=== PATIENT | male | born 1965 | race Caucasian/White ===

== ENCOUNTER 2018-08-03 05:25 | Day surgery (SDC) | payer BC ==
[~2018-08-03] VITALS: Ht 167.6 cm; Wt 95.0 kg
[2018-08-03 06:24] VITALS: BP 128/82
[2018-08-03] MEDS ORDERED: SODIUM CHLORIDE 0.9% 1,000 ML IV SCH (06:28)
[2018-08-03 06:38] LABS: INTERNATIONAL NORMALIZED RATIO 0.97 (0.93-1.1); PROTHROMBIN TIME 10.1 Seconds (9.6-11.5)
[2018-08-03] MEDS ORDERED: NALOXONE 1 MG/ML, 2ML ONE (07:40)
[2018-08-03] MEDS ORDERED: FENTANYL PF 100 MCG/2ML ONE (07:40)
[2018-08-03] MEDS ORDERED: FLUMAZENIL 0.1 MG/1 ML, 5ML ONE (07:40)
[2018-08-03] MEDS ORDERED: MIDAZOLAM 1 MG/ML, 5ML ONE (07:40)
[2018-08-03] MEDS ORDERED: LIDOCAINE-MPF 2%, 2ML ONE ×2 (07:40→10:28)
[2018-08-03] MEDS ORDERED: ATROPINE SYRINGE 0.1 MG/ML, 10ML IVPush ONE (12:00)
[2018-08-05] MEDS ORDERED: EPHEDRINE 50 MG/ML, 1ML ONE (09:58)
[2018-08-05] MEDS ORDERED: ATROPINE SYRINGE 0.1 MG/ML, 10ML ONE (09:59)
== END 2018-08-03 13:20 | disposition home or self-care (01) ==
LOC: OUT 05:25
PROVIDERS: ATTEND Internal Medicine Nephrology
DX: D47.2 Monoclonal gammopathy (principal); D80.8 Other immunodeficiencies with predominantly antibody defects; M10.9 Gout, unspecified; G47.33 Obstructive sleep apnea (adult) (pediatric); N18.9 Chronic kidney disease, unspecified; D64.9 Anemia, unspecified
CPT/HCPCS: 36415; 38222; 50200; 77012; 85097; 85610; 88237; 88264; 88280; 88300; 88305; 88311; 88313; 88341; 88342; 88360; 93005; 99156; 99157; J0461; J2250; J3010; J3490; J7030; 85060; G0461; J2310

== ENCOUNTER 2019-02-10 01:17 | Inpatient (IN) | payer BC ==
[~2019-02-10] VITALS: Ht 167.6 cm; Wt 111.0 kg
[2019-02-10] MEDS ORDERED: SODIUM CHLORIDE FLUSH 10ML SYR IVF ONE (01:30)
[2019-02-10] MEDS ORDERED: ACETAMINOPHEN 500 MG TABLET PO ONE (01:30)
[2019-02-10] MEDS ORDERED: ACETAMINOPHEN 500 MG TABLET ONE (01:41)
--- NOTE | 2019-02-10 01:55 | NUR ---
FIRST CONTACT WITH PT. PT C/O FEVER(102) AND FATIGUE SINCE 4PM TODAY. PT HAS MULTIPLE MYELOMA. CHEMO ON LAST TUESDAY. PT DENIES N/V/D/DZY AT THIS TIME. PT'S AOX4. RESPS EVEN AND UNLABORED. BP/SPO2 MONITORS IN PLACE. CALL LIGHT WITHIN REACH. EDMD AT BEDSIDE TO ASSESS AT THIS TIME.
[2019-02-10 02:00] LABS: CULTURE INDICATED? YES; MICROSCOPIC INDICATED
--- NOTE | 2019-02-10 02:00 | NUR ---
PT AMB TO BR AND BACK TO ROOM WITH STEADY GAIT. UA SENT.
--- NOTE | 2019-02-10 02:04 | NUR ---
PT MEDICATED PER EMAR. PT TOLERATED WELL.
[2019-02-10] MEDS ORDERED: ACYC-114 PO (02:08)
[2019-02-10] MEDS ORDERED: VENL75CA PO (02:09)
[2019-02-10] MEDS ORDERED: LENA20CA PO (02:11)
[2019-02-10] MEDS ORDERED: ASPI-496 PO (02:11)
[2019-02-10] MEDS ORDERED: FERR324T5 PO (02:12)
[2019-02-10] MEDS ORDERED: ERGO500017 PO (02:13)
[2019-02-10 02:27] LABS: ALBUMIN 3.6 g/dL (3.4-5.0); ANION GAP 7 mmol/L (5-15); CALCIUM 9.1 mg/dL (8.5-10.1); CHLORIDE 108 mmol/L (98-107); CREATININE 1.77 mg/dL (0.7-1.3)
[2019-02-10 02:42] LABS: BASOPHILS # (AUTO) 0.01 x10^3/uL (0-0.1); BASOPHILS % (AUTO) 0 % (0-1); EOSINOPHILS # (AUTO) 0.02 x10^3/uL (0-0.4); EOSINOPHILS % (AUTO) 0 % (1-7); LYMPHOCYTES # (AUTO) 0.43 x10^3/uL (1-3.4); LYMPHOCYTES % (AUTO) 5 % (22-44); MD NO; MEAN CORPUSCULAR HEMOGLOBIN 31.4 pg (27.5-34.5); MEAN CORPUSCULAR HGB CONC 32.4 g/dL (33.2-36.2); MONOCYTES # (AUTO) 0.49 x10^3/uL (0.2-0.8); MONOCYTES % (AUTO) 5 % (2-9); NEUTROPHILS # (AUTO) 8.01 x10^3/uL (1.8-6.8); NEUTROPHILS % (AUTO) 90 % (42-75); PLATELET COUNT 145 x10^3/uL (130-400); RED BLOOD COUNT 4.39 x10^6/uL (4.38-5.82); RED CELL DISTRIBUTION WIDTH 19.1 % (9.4-14.8)
--- NOTE | 2019-02-10 02:45 | NUR ---
REPORT GIVEN TO AUSTEN RAY. ALL QUESTIONS ANSWERED.
[2019-02-10] MEDS: HEPARIN 5,000 UNITS/ML, 1ML SQ SCH ×3 (03:00→19:00)
[2019-02-10] MEDS ORDERED: LABETALOL 5MG/ML, 20ML IVPush PRN (03:00)
[2019-02-10] MEDS ORDERED: ONDANSETRON 2MG/ML, 2ML IVPush PRN (03:00)
[2019-02-10] MEDS ORDERED: ACETAMINOPHEN 325 MG TABLET PO PRN (03:00)
[2019-02-10 03:09] VITALS: BP 118/62
[2019-02-10 03:24] VITALS: BP 98/63
[2019-02-10] MEDS: SODIUM CHLORIDE 0.9% 1,000 ML IV SCH ×3 (03:41→23:13)
[2019-02-10] MEDS ORDERED: SODIUM CHLORIDE 0.9% 1,000 ML IV SCH ×2 (05:30)
[2019-02-10] MEDS ORDERED: ERGOCALCIFEROL 50,000 UNIT CAPSULE PO SCH (07:00)
[2019-02-10] MEDS ORDERED: VENLAFAXINE 75 MG CAP ER PO SCH (09:00)
[2019-02-10 10:00] VITALS: BP 112/67
[2019-02-10] MEDS ORDERED: ACYCLOVIR 400 MG TABLET PO SCH (10:00)
[2019-02-10] MEDS: ASPIRIN 81 MG TABLET EC PO SCH (10:10)
[2019-02-10] MEDS: FERROUS SULFATE 325 MG TABLET PO SCH (10:10)
[2019-02-10 11:08] LABS: ANION GAP 7 mmol/L (5-15); CALCIUM 8.6 mg/dL (8.5-10.1); CHLORIDE 115 mmol/L (98-107); CREATININE 1.36 mg/dL (0.7-1.3)
[2019-02-10 11:27] LABS: MEAN CORPUSCULAR HEMOGLOBIN 31.7 pg (27.5-34.5); MEAN CORPUSCULAR HGB CONC 33.4 g/dL (33.2-36.2); MEAN PLATELET VOLUME 9.5 fL (7.4-10.4); PLATELET COUNT 118 x10^3/uL (130-400); RED BLOOD COUNT 3.87 x10^6/uL (4.38-5.82); RED CELL DISTRIBUTION WIDTH 18.5 % (9.4-14.8)
[2019-02-10 11:28] LABS: MD YES
[2019-02-10 11:34] LABS: ANISOCYTOSIS 1+; BAND#(MANUAL) 0.83 x10^3/uL; BANDS%(MANUAL) 15 % (0-7); BASOS#(MANUAL) 0.11 x10^3/uL (0-0.1); BASOS% (MANUAL) 2 % (0-1); LYMPH#(MANUAL) 0.55 x10^3/uL (1-3.4); LYMPHS% (MANUAL) 10 % (22-44); MONOS#(MANUAL) 0.55 x10^3/uL (0.3-2.7); MONOS% (MANUAL) 10 % (2-9); REACTIVE LYMPHS # (MANUAL) 0.06 x10^3/uL (0-0); REACTIVE LYMPHS % (MANUAL) 1 % (0-0); SEG#(MANUAL) 3.41 x10^3/uL (1.8-6.8); SEGS% (MANUAL) 62 % (42-75)
[2019-02-10 11:35] LABS: OVALOCYTES 1+; POLYCHROMASIA 1+
[2019-02-10 11:36] LABS: <PLATELET ESTIMATE> DECREASED; <PLT MORPHOLOGY> NORMAL PLT MORPH
[2019-02-10] MEDS ORDERED: PHARMACY MAY ADJ FOR RENAL FX MC PRN (12:30)
[2019-02-10] MEDS ORDERED: POTASSIUM CHLORIDE 20 MEQ TAB.ER.PRT PO ONE (12:30)
[2019-02-10 13:19] VITALS: BP 135/78
[2019-02-10 13:20] LABS: BILIRUBIN, DIRECT 0.3 mg/dL (0.1-0.2)
[2019-02-10 13:25] LABS: BILIRUBIN,INDIRECT 0.5 mg/dL (0.0-2.0); BILIRUBIN,TOTAL 0.8 mg/dL (0.2-1.0); TOTAL PROTEIN 5.8 g/dL (6.4-8.2)
[2019-02-10] MEDS: CEFEPIME 1 GM in DEXTROSE 5% 50 ML IV SCH ×2 (14:03→20:25)
[2019-02-10 20:10] VITALS: BP 122/78
[2019-02-10] MEDS: VENLAFAXINE 75 MG CAP ER PO SCH (20:24)
[2019-02-10] MEDS: ACYCLOVIR 400 MG TABLET PO SCH (20:25)
[2019-02-11 01:10] VITALS: BP 131/81
[2019-02-11] MEDS ORDERED: BORT3.5V SQ (01:45)
[2019-02-11] MEDS: HEPARIN 5,000 UNITS/ML, 1ML SQ SCH ×3 (03:00→19:00)
[2019-02-11] MEDS: CEFEPIME 1 GM in DEXTROSE 5% 50 ML IV SCH ×3 (04:31→19:43)
[2019-02-11] MEDS: SODIUM CHLORIDE 0.9% 1,000 ML IV SCH ×3 (05:28→19:44)
[2019-02-11 06:02] LABS: BASOPHILS # (AUTO) 0.04 x10^3/uL (0-0.1); BASOPHILS % (AUTO) 1 % (0-1); EOSINOPHILS # (AUTO) 0.13 x10^3/uL (0-0.4); EOSINOPHILS % (AUTO) 2 % (1-7); LYMPHOCYTES # (AUTO) 0.89 x10^3/uL (1-3.4); LYMPHOCYTES % (AUTO) 16 % (22-44); MD NO; MEAN CORPUSCULAR HEMOGLOBIN 32.5 pg (27.5-34.5); MEAN CORPUSCULAR HGB CONC 33.8 g/dL (33.2-36.2); MEAN PLATELET VOLUME 9.6 fL (7.4-10.4); MONOCYTES # (AUTO) 0.81 x10^3/uL (0.2-0.8); MONOCYTES % (AUTO) 15 % (2-9); NEUTROPHILS # (AUTO) 3.64 x10^3/uL (1.8-6.8); NEUTROPHILS % (AUTO) 66 % (42-75); PLATELET COUNT 107 x10^3/uL (130-400); RED BLOOD COUNT 3.84 x10^6/uL (4.38-5.82); RED CELL DISTRIBUTION WIDTH 18.5 % (9.4-14.8)
[2019-02-11 06:11] LABS: CHLORIDE 115 mmol/L (98-107)
[2019-02-11 06:19] LABS: ALANINE AMINOTRANSFERASE 176 U/L (12-78); ALBUMIN 3.1 g/dL (3.4-5.0); ALKALINE PHOSPHATASE 83 U/L (45-117); BILIRUBIN,TOTAL 0.8 mg/dL (0.2-1.0); CALCIUM 8.8 mg/dL (8.5-10.1); CREATININE 1.14 mg/dL (0.7-1.3)
[2019-02-11 06:23] LABS: ANION GAP 6 mmol/L (5-15)
[2019-02-11 06:56] VITALS: BP 138/74
[2019-02-11] MEDS: FERROUS SULFATE 325 MG TABLET PO SCH (09:16)
[2019-02-11] MEDS: ASPIRIN 81 MG TABLET EC PO SCH (09:16)
[2019-02-11] MEDS: ACYCLOVIR 400 MG TABLET PO SCH ×2 (09:17→19:43)
[2019-02-11 13:22] VITALS: BP 126/78
[2019-02-11 13:56] LABS: AMPHETAMINE SCREEN, URINE Negative (Negative); BARBITURATE SCREEN, URINE Negative (Negative); BENZODIAZEPINE SCREEN, URINE Negative (Negative); CANNABINOID SCREEN, URINE Negative (Negative); COCAINE SCREEN, URINE Negative (Negative); METHADONE SCREEN, URINE Negative (Negative); OPIATE SCREEN, URINE Negative (Negative)
[2019-02-11 14:35] LABS: HIT RESULT NEGATIVE (NEGATIVE)
[2019-02-11] MEDS ORDERED: SINCALIDE (KINEVAC) 5 MCG ONE (14:41)
[2019-02-11] MEDS: VENLAFAXINE 75 MG CAP ER PO SCH (19:43)
[2019-02-11 20:30] VITALS: BP 137/86
[2019-02-12 01:34] VITALS: BP 128/83
[2019-02-12] MEDS: SODIUM CHLORIDE 0.9% 1,000 ML IV SCH (01:37)
[2019-02-12] MEDS: HEPARIN 5,000 UNITS/ML, 1ML SQ SCH ×3 (02:41→19:00)
[2019-02-12] MEDS: CEFEPIME 1 GM in DEXTROSE 5% 50 ML IV SCH (04:08)
[2019-02-12 05:44] LABS: BASOPHILS # (AUTO) 0.04 x10^3/uL (0-0.1); BASOPHILS % (AUTO) 1 % (0-1); EOSINOPHILS # (AUTO) 0.36 x10^3/uL (0-0.4); EOSINOPHILS % (AUTO) 6 % (1-7); LYMPHOCYTES # (AUTO) 0.96 x10^3/uL (1-3.4); LYMPHOCYTES % (AUTO) 15 % (22-44); MD NO; MEAN CORPUSCULAR HEMOGLOBIN 32.7 pg (27.5-34.5); MEAN CORPUSCULAR HGB CONC 34.6 g/dL (33.2-36.2); MEAN CORPUSCULAR VOLUME 94.5 fL (81-97); MEAN PLATELET VOLUME 9.4 fL (7.4-10.4); MONOCYTES # (AUTO) 0.76 x10^3/uL (0.2-0.8); MONOCYTES % (AUTO) 12 % (2-9); NEUTROPHILS # (AUTO) 4.26 x10^3/uL (1.8-6.8); NEUTROPHILS % (AUTO) 67 % (42-75); PLATELET COUNT 110 x10^3/uL (130-400); RED BLOOD COUNT 3.88 x10^6/uL (4.38-5.82); RED CELL DISTRIBUTION WIDTH 18.5 % (9.4-14.8)
[2019-02-12 05:52] LABS: CHLORIDE 115 mmol/L (98-107)
[2019-02-12 06:08] LABS: ALANINE AMINOTRANSFERASE 133 U/L (12-78); ALBUMIN 3.2 g/dL (3.4-5.0); ALKALINE PHOSPHATASE 95 U/L (45-117); ANION GAP 7 mmol/L (5-15); BILIRUBIN,TOTAL 0.8 mg/dL (0.2-1.0); CALCIUM 9.2 mg/dL (8.5-10.1); CREATININE 1.06 mg/dL (0.7-1.3); TOTAL PROTEIN 6.3 g/dL (6.4-8.2)
[2019-02-12] MEDS ORDERED: VANCOMYCIN PER PHARMACY MC PRN (06:30)
[2019-02-12] MEDS ORDERED: POTASSIUM CHLORIDE 20 MEQ TAB.ER.PRT PO ONE (06:30)
[2019-02-12] MEDS ORDERED: PHARMACOKINETIC MONITORING MC PRN (07:00)
[2019-02-12] MEDS ORDERED: PHARMACOKINETIC CONSULTATION MC ONE (07:00)
[2019-02-12] MEDS: VANCOMYCIN 2,100 MG in SODIUM CHLORIDE 0.9% 500 ML IV SCH (07:04)
[2019-02-12 07:50] VITALS: BP 115/72
[2019-02-12] MEDS: FERROUS SULFATE 325 MG TABLET PO SCH (09:56)
[2019-02-12] MEDS: ASPIRIN 81 MG TABLET EC PO SCH (09:56)
[2019-02-12] MEDS: ACYCLOVIR 400 MG TABLET PO SCH ×2 (09:56→21:23)
[2019-02-12 13:42] VITALS: BP 111/68
[2019-02-12 14:00] VITALS: BP 138/91
[2019-02-12 19:38] VITALS: BP 125/69
[2019-02-12] MEDS: VENLAFAXINE 75 MG CAP ER PO SCH (21:22)
[2019-02-13] MEDS: VANCOMYCIN 2,100 MG in SODIUM CHLORIDE 0.9% 500 ML IV SCH (00:34)
[2019-02-13 00:54] VITALS: BP 133/86
[2019-02-13] MEDS ORDERED: SODIUM CHLORIDE 0.9% 1,000 ML IV SCH (02:47)
[2019-02-13] MEDS: HEPARIN 5,000 UNITS/ML, 1ML SQ SCH ×3 (03:00→19:00)
[2019-02-13 06:35] VITALS: BP 126/85
[2019-02-13 08:14] LABS: ANION GAP 7 mmol/L (5-15); CALCIUM 9.2 mg/dL (8.5-10.1); CHLORIDE 115 mmol/L (98-107)
[2019-02-13 08:17] LABS: ALANINE AMINOTRANSFERASE 93 U/L (12-78); ALKALINE PHOSPHATASE 103 U/L (45-117); BILIRUBIN,TOTAL 0.8 mg/dL (0.2-1.0); CREATININE 0.97 mg/dL (0.7-1.3); TOTAL PROTEIN 6.3 g/dL (6.4-8.2)
[2019-02-13] MEDS: ACYCLOVIR 400 MG TABLET PO SCH ×2 (09:47→21:03)
[2019-02-13] MEDS: FERROUS SULFATE 325 MG TABLET PO SCH (09:47)
[2019-02-13] MEDS: ASPIRIN 81 MG TABLET EC PO SCH (09:47)
[2019-02-13] MEDS: SODIUM CHLORIDE 0.9% 1,000 ML IV SCH ×2 (10:52→21:03)
[2019-02-13] MEDS: CEFTRIAXONE PMX 2GM/50ML 50 ML IV SCH (11:11)
[2019-02-13 14:35] VITALS: BP 139/91
[2019-02-13 19:35] VITALS: BP 136/74
[2019-02-13] MEDS: VENLAFAXINE 75 MG CAP ER PO SCH (21:03)
[2019-02-14 00:39] VITALS: BP 136/79
[2019-02-14] MEDS: HEPARIN 5,000 UNITS/ML, 1ML SQ SCH ×3 (02:47→19:00)
[2019-02-14 04:57] LABS: BASOPHILS # (AUTO) 0.12 x10^3/uL (0-0.1); BASOPHILS % (AUTO) 3 % (0-1); EOSINOPHILS # (AUTO) 0.48 x10^3/uL (0-0.4); EOSINOPHILS % (AUTO) 11 % (1-7); LYMPHOCYTES # (AUTO) 1.24 x10^3/uL (1-3.4); LYMPHOCYTES % (AUTO) 28 % (22-44); MD NO; MEAN CORPUSCULAR HEMOGLOBIN 31.6 pg (27.5-34.5); MEAN CORPUSCULAR VOLUME 95.9 fL (81-97); MEAN PLATELET VOLUME 8.2 fL (7.4-10.4); MONOCYTES # (AUTO) 0.52 x10^3/uL (0.2-0.8); MONOCYTES % (AUTO) 12 % (2-9); NEUTROPHILS # (AUTO) 2.11 x10^3/uL (1.8-6.8); NEUTROPHILS % (AUTO) 47 % (42-75); PLATELET COUNT 159 x10^3/uL (130-400); RED BLOOD COUNT 3.85 x10^6/uL (4.38-5.82)
[2019-02-14 05:06] LABS: ALANINE AMINOTRANSFERASE 94 U/L (12-78); ALBUMIN 2.9 g/dL (3.4-5.0); ANION GAP 5 mmol/L (5-15); CALCIUM 9.3 mg/dL (8.5-10.1); CHLORIDE 112 mmol/L (98-107); CREATININE 1.07 mg/dL (0.7-1.3)
[2019-02-14 05:08] LABS: ALKALINE PHOSPHATASE 118 U/L (45-117); BILIRUBIN,TOTAL 0.7 mg/dL (0.2-1.0); TOTAL PROTEIN 6.5 g/dL (6.4-8.2)
[2019-02-14 06:49] VITALS: BP 125/79
[2019-02-14] MEDS: FERROUS SULFATE 325 MG TABLET PO SCH (09:40)
[2019-02-14] MEDS: ASPIRIN 81 MG TABLET EC PO SCH (09:40)
[2019-02-14] MEDS: ACYCLOVIR 400 MG TABLET PO SCH ×2 (09:40→20:04)
[2019-02-14] MEDS: CEFTRIAXONE PMX 2GM/50ML 50 ML IV SCH (10:32)
[2019-02-14] MEDS: SODIUM CHLORIDE 0.9% 1,000 ML IV SCH (10:32)
[2019-02-14 15:30] VITALS: BP 118/68
[2019-02-14 19:15] VITALS: BP 129/83
[2019-02-14] MEDS: VENLAFAXINE 75 MG CAP ER PO SCH (20:04)
[2019-02-15] MEDS: SODIUM CHLORIDE 0.9% 1,000 ML IV SCH (00:50)
[2019-02-15 01:33] VITALS: BP 129/78
[2019-02-15] MEDS: HEPARIN 5,000 UNITS/ML, 1ML SQ SCH ×3 (02:53→19:00)
[2019-02-15 04:52] LABS: HCT (SEDRATE) 37.6 % (39.2-51.8)
[2019-02-15 04:56] LABS: ALBUMIN 3.1 g/dL (3.4-5.0); ANION GAP 6 mmol/L (5-15); CALCIUM 9.1 mg/dL (8.5-10.1); CHLORIDE 114 mmol/L (98-107)
[2019-02-15 05:10] LABS: ALANINE AMINOTRANSFERASE 72 U/L (12-78); ALKALINE PHOSPHATASE 111 U/L (45-117); BILIRUBIN,TOTAL 0.7 mg/dL (0.2-1.0); CREATININE 1.13 mg/dL (0.7-1.3); TOTAL PROTEIN 6.5 g/dL (6.4-8.2)
[2019-02-15 06:45] VITALS: BP 126/78
[2019-02-15] MEDS: ACYCLOVIR 400 MG TABLET PO SCH ×2 (07:37→20:49)
[2019-02-15] MEDS: ASPIRIN 81 MG TABLET EC PO SCH (07:37)
[2019-02-15] MEDS: FERROUS SULFATE 325 MG TABLET PO SCH (07:37)
[2019-02-15] MEDS: CEFTRIAXONE PMX 2GM/50ML 50 ML IV SCH (10:54)
[2019-02-15 13:05] VITALS: BP 128/83
[2019-02-15] MEDS ORDERED: OMNIPAQUE 350 MG/ML, 150 ML BOTTLE ONE (17:31)
[2019-02-15 20:00] VITALS: BP 122/74
[2019-02-15] MEDS: VENLAFAXINE 75 MG CAP ER PO SCH (20:49)
[2019-02-16 01:07] VITALS: BP 119/69
[2019-02-16] MEDS: HEPARIN 5,000 UNITS/ML, 1ML SQ SCH ×2 (03:00→10:50)
[2019-02-16] MEDS: ASPIRIN 81 MG TABLET EC PO SCH (08:34)
[2019-02-16] MEDS: FERROUS SULFATE 325 MG TABLET PO SCH (08:35)
[2019-02-16] MEDS: ACYCLOVIR 400 MG TABLET PO SCH (08:35)
[2019-02-16] MEDS ORDERED: TAMSULOSIN 0.4 MG CAP.ER.24H PO SCH (09:00)
[2019-02-16 09:45] VITALS: BP 134/78
[2019-02-16] MEDS ORDERED: AMOXICILLIN/CLAV 875-125MG TABLET PO SCH (10:30)
[2019-02-16] MEDS ORDERED: metroNIDAZOLE 500 MG TABLET PO SCH (10:30)
[2019-02-16] MEDS ORDERED: TAMS-11 PO (11:04)
[2019-02-16] MEDS ORDERED: AMOX1TAB12 PO (11:04)
[2019-02-16] MEDS ORDERED: L.AC1CAP6 PO (11:04)
== END 2019-02-16 13:07 | disposition home or self-care (01) | DRG 872 ==
LOC: ED 02:04 → EDIP 02:07 → 3NE 03:05 → 3NW 02-11 01:04 → 2N 02-14 14:25 → 3NW 02-14 14:35 → DCLOUNGE 02-16 12:58
PROVIDERS: ADMIT Family Medicine; ATTEND Family Medicine
DX: A41.9 Sepsis, unspecified organism (principal); C90.00 Multiple myeloma not having achieved remission; N17.9 Acute kidney failure, unspecified; N18.4 Chronic kidney disease, stage 4 (severe); D69.59 Other secondary thrombocytopenia; E87.6 Hypokalemia; K02.9 Dental caries, unspecified; K05.6 Periodontal disease, unspecified; K06.8 Other specified disorders of gingiva and edentulous alveolar ridge; K57.30 Diverticulosis of large intestine without perforation or abscess without bleeding; K82.4 Cholesterolosis of gallbladder; N20.0 Calculus of kidney; T45.1X5A Adverse effect of antineoplastic and immunosuppressive drugs, initial encounter; Z80.7 Family history of other malignant neoplasms of lymphoid, hematopoietic and related tissues; Z96.651 Presence of right artificial knee joint; M10.9 Gout, unspecified
CPT/HCPCS: 36415; 70100; 71045; 74177; 76700; 78227; 80048; 80053; 80074; 80076; 80307; 81001; 82040; 83605; 84145; 85025; 85651; 86022; 86140; 87040; 87086; 93306; 99285; G0378; J0692; J0696; J3370; Q9967; A9537; C9898; J2805; J7030; J7040